=== PATIENT | male | born 1950 | race Caucasian/White ===

== ENCOUNTER 2022-10-02 01:07 | Day surgery (SDC) | payer MEDICARE, SELFPAY ==
[2022-09-24 11:41] VITALS: BMI 28.6
[2022-10-02 06:19] VITALS: BP 111/69; PULSE 79; RESP 16; TEMP 36.3; O2SAT 96
[2022-10-02] MEDS: LACTATED RINGERS 1,000 ML 150 ML IV CONT (06:29)
--- NOTE | 2022-10-02 06:51 | PM.HPGS ---
History of Present Illness History of Present Illness Consent: Risks, benefits, and alternatives have been discussed and questions answered. Patient agrees to proceed with procedure. Chief complaint: neoplasm screening Narrative: Alvin Loving is a 72 year old male Referred for colon cancer screening Review of Systems Review of Systems: All systems reviewed & are unremarkable except as noted in HPI and below [facility] Social History Social History Smoking status: Never smoker Alcohol intake: current Drinks per week: 6 Alcohol use details: on occasion Substance use: never Substance use type: does not use Living arrangements: with family Spiritual care concerns: No Meds Home Medications and Allergies Home Medications Medication Instructions Recorded Confirmed Type aspirin 81 mg PO DAILY 09/24/22 10/02/22 History rosuvastatin 20 mg tablet 20 mg PO DAILY 09/24/22 10/02/22 History Allergies Allergy/AdvReac Type Severity Reaction Status Date / Time No Known Allergies Allergy Verified 10/02/22 06:17 Vital Signs Vital Signs - 24 hr 10/02/22 06:19 Temperature 36.3 C L Pulse Rate 79 Respiratory Rate 16 Blood Pressure 111/69 Pulse Oximetry 96 Oxygen Delivery Room Air Exam Const: General: alert Orientation/consciousness: patient oriented x3 Resp: Auscultation: clear to auscultation bilaterally Cardio: Rhythm: regular rhythm GI: GI Palp: Yes Soft to palpation and No Tenderness to palpation present (GI) Neuro: General: patient oriented x3 Assessment and Plan Assessment and plan (1) Colon cancer screening: Code(s): Z12.11 - Encounter for screening for malignant neoplasm of colon Status: Acute Assessment and Plan: Colonoscopy with possible biopsy or polypectomy or cautery or injection of substances.
--- NOTE | 2022-10-02 07:05 | P.PNAN_ITS ---
Anes - Initial Pre Proc Eval Procedure: Operation Date: 10/02/22 07:30 Proposed Procedures p Screening Colonoscopy - Drake Benz MD Date/Time: 10/02/22 07:05 Surgeon: Drake Benz MD Pre Op Diagnosis: neoplasm screening Patient Data Age: 72 Gender: M Height: 1.65 m Weight: 77.3 kg Last Vital Signs Temp 36.3 C L 10/02/22 06:19 Pulse 79 10/02/22 06:19 Resp 16 10/02/22 06:19 BP 111/69 10/02/22 06:19 Pulse Ox 96 10/02/22 06:19 O2 Del Method Room Air 10/02/22 06:19 Allergies Allergy/AdvReac Type Severity Reaction Status Date / Time No Known Allergies Allergy Verified 10/02/22 06:17 Home Medications Medication Instructions Recorded Confirmed Type aspirin 81 mg PO DAILY 09/24/22 10/02/22 History rosuvastatin 20 mg tablet 20 mg PO DAILY 09/24/22 10/02/22 History Patient hx anesthesia problems: none Family hx anesthesia problems: none Results Review: All pre-operative results and documents have been reviewed as part of the pre- operative evaluation. ON LICENSE OF [facility] Social History Social History Smoking status: Never smoker Alcohol intake: current Drinks per week: 6 Alcohol use details: on occasion Substance use: never Substance use type: does not use Living arrangements: with family Spiritual care concerns: No Anes - Eval Final PreProcedure Day of Procedure 10/02/22 07:05 Patient weight: overweight Heart: regular rate and rhythm Lungs: clear to auscultation Airway: Mallampati scale class II Neurological: alert and oriented Last oral intake: >/= 8 hours ASA classification: III Emergent: no Anesthetic plan: proceed Anesthesia type and monitoring: general GIVS and standard monitoring Results Review: All pre-operative results and documents have been reviewed as part of the pre- operative evaluation. Informed Consent: The patient's anesthetic plan and its attendant risks and benefits were discussed with the patient/family/POA. Questions were solicited and answers provided to the satisfaction of the patient/family/POA.
[2022-10-02 07:34] VITALS: BP 89/52; PULSE 67; RESP 16; O2SAT 95
[2022-10-02 07:44] VITALS: BP 83/51; PULSE 68; RESP 16; O2SAT 98
[2022-10-02 07:52] VITALS: BP 101/58; PULSE 62; RESP 16; O2SAT 96
== END 2022-10-02 08:15 | disposition home or self-care (01) ==
PROVIDERS: PCP Internal Medicine; Visit Provider Internal Medicine Gastroenterology
PROC: 0DJD8ZZ Inspection of Lower Intestinal Tract, Via Natural or Artificial Opening Endoscopic (ICD-10-PCS; CPT 45378; principal; 2022-10-02 07:30)
DX: Z12.11 Encounter for screening for malignant neoplasm of colon (principal); D12.8 Benign neoplasm of rectum; K57.30 Diverticulosis of large intestine without perforation or abscess without bleeding; K64.4 Residual hemorrhoidal skin tags; K64.8 Other hemorrhoids
CPT/HCPCS: 45380; 88305; J2704; J7120